=== PATIENT | female | born 2000 | race Caucasian/White ===

== ENCOUNTER 2024-01-16 01:03 | Emergency (ER) | payer BC ==
[2024-01-16 01:11] VITALS: BP 124/77; PULSE 70; RESP 16; TEMP 98.1; BMI 41.8
[2024-01-16] MEDS ORDERED: ONDANSETRON 4 MG/2 ML VIAL ONE (02:42)
[2024-01-16] MEDS ORDERED: ACETAMINOPHEN INJECTION 100 ML IVPB ONE (02:42)
[2024-01-16] MEDS: ONDANSETRON 4 MG/2 ML VIAL IVPUSH ONE (02:49)
[2024-01-16] MEDS: ACETAMINOPHEN 1000 MG/100 ML BAG IVPB ONE (02:49)
[2024-01-16 02:50] LABS: BASO % 0.2 % (0-2.0); HEMATOCRIT 39.8 % (32.4-45.2); HEMOGLOBIN 13.5 GM/dL (10.7-15.3); MCH 28.5 pg (25.7-33.7); MCHC 33.9 g/dl (32.0-36.0); MEAN CELL VOLUME 84.3 fl (80-96); MEAN PLT VOLUME 9.1 fl (7.5-11.1); MONO % 2.7 % (3.8-10.2); NEUT % 89.1 % (42.8-82.8); PLATELET COUNT 326 10^3/uL (134-434); RBC 4.72 M/mm3 (3.60-5.2); RDW 13.9 % (11.6-15.6); WHITE BLOOD COUNT 13.9 K/mm3 (4.0-10.0)
[2024-01-16] MEDS: LACTATED RINGERS SOLUTION 1000 ML INFUS.BAG IV ONE (02:50)
[2024-01-16 02:56] LABS: URINE APPEARANCE CLEAR; URINE BILIRUBIN NEGATIVE (NEGATIVE); URINE COLOR YELLOW; URINE GLUCOSE (UA) NEGATIVE (NEGATIVE); URINE KETONE 1+ (NEGATIVE); URINE LEUK ESTERASE TRACE (NEGATIVE); URINE NITRITE NEGATIVE (NEGATIVE); URINE PROTEIN 1+ (NEGATIVE)
[2024-01-16 03:11] LABS: POTASSIUM 4.2 mmol/L (3.5-5.1)
[2024-01-16 03:12] LABS: ALBUMIN 4.3 g/dl (3.4-5.0); BLOOD UREA NITROGEN 8.1 mg/dL (7-18); CALCIUM 9.7 mg/dL (8.5-10.1)
[2024-01-16 03:15] LABS: CREATININE 0.7 mg/dL (0.55-1.3)
[2024-01-16 03:17] LABS: BILIRUBIN,TOTAL 0.4 mg/dL (0.2-1)
[2024-01-16 08:17] LABS: EPI CELLS 63.8 /uL (0-25.1); HYALINE CASTS 2.04 /uL (0-3.1); URINE BACTERIA 1254.8 /uL (0-1359); URINE RBC 382.8 /uL (0-23.9); URINE WBC 39.6 /uL (0-25.8)
[2024-01-16] MEDS ORDERED: KETOROLAC TROMETHAMINE 15 MG/ML VIAL IVPUSH PRN (18:13)
[2024-01-16] MEDS ORDERED: ACETAMINOPHEN 1000 MG/100 ML BAG IVPB PRN (18:13)
[2024-01-16] MEDS ORDERED: LACTATED RINGERS SOLUTION 1,000 ML/1,000 ML INFUS.BAG IV SCH (18:15)
[2024-01-16] MEDS ORDERED: AMPICILLIN NA/SULBACTAM NA 3 GM in SODIUM CHLORIDE 100 ML IVPB SCH (18:15)
== END 2024-01-16 03:50 | disposition home or self-care (01) ==
LOC: JER 01:03
PROC: 3E033NZ Introduction of Analgesics, Hypnotics, Sedatives into Peripheral Vein, Percutaneous Approach (ICD-10-PCS; principal; 2024-01-16)
PROC: 3E033GC Introduction of Other Therapeutic Substance into Peripheral Vein, Percutaneous Approach (ICD-10-PCS; 2024-01-16)
DX: K80.20 Calculus of gallbladder without cholecystitis without obstruction (principal); R10.11 Right upper quadrant pain; R11.2 Nausea with vomiting, unspecified
CPT/HCPCS: 36415; 76705-TC; 80053; 81003; 83690; 84703; 85025; 99284-25; J0131

== ENCOUNTER 2024-01-16 14:38 | Inpatient (IN) | payer BC ==
[2024-01-16 14:45] VITALS: BMI 35.4
[2024-01-16] MEDS ORDERED: ACETAMINOPHEN INJECTION 100 ML IVPB ONE (16:04)
[2024-01-16] MEDS ORDERED: FAMOTIDINE 20 MG/50 ML IVPB 20 MG/50 ML MG IVPB ONE (16:04)
[2024-01-16 16:05] LABS: EPI CELLS >36 /uL (0-25.1); HYALINE CASTS 2 /uL (0-3.1); PH,URINE 6.5 (5.0-8.0); URINE APPEARANCE CLEAR; URINE BACTERIA 1154 /uL (0-1359); URINE BILIRUBIN NEGATIVE (NEGATIVE); URINE COLOR YELLOW; URINE GLUCOSE (UA) NEGATIVE (NEGATIVE); URINE KETONE TRACE (NEGATIVE); URINE LEUK ESTERASE 1+ (NEGATIVE); URINE NITRITE NEGATIVE (NEGATIVE); URINE PROTEIN TRACE (NEGATIVE); URINE RBC 118 /uL (0-23.9); URINE WBC 45 /uL (0-25.8)
[2024-01-16] MEDS: SODIUM CHLORIDE 1,000 ML IV STA (16:09)
[2024-01-16] MEDS: ACETAMINOPHEN 1000 MG/100 ML BAG IVPB ONE (16:09)
[2024-01-16] MEDS: FAMOTIDINE 20 MG/50 ML IVPB 20 MG/50 ML MG IVPB ONE (16:10)
[2024-01-16 16:13] LABS: BASO % 0.9 % (0-2.0); EOS % 0.5 % (0-4.5); HEMATOCRIT 39.8 % (32.4-45.2); HEMOGLOBIN 13.3 GM/dL (10.7-15.3); MCH 28.7 pg (25.7-33.7); MCHC 33.5 g/dl (32.0-36.0); MEAN CELL VOLUME 85.6 fl (80-96); MEAN PLT VOLUME 9.3 fl (7.5-11.1); NEUT % 72.6 % (42.8-82.8); PLATELET COUNT 313 10^3/uL (134-434); RBC 4.65 M/mm3 (3.60-5.2); RDW 13.7 % (11.6-15.6); WHITE BLOOD COUNT 11.3 K/mm3 (4.0-10.0)
[2024-01-16 16:23] LABS: INR 1.05 (0.83-1.09); PROTHROMBIN TIME (PATIENT) 12.1 SEC (9.7-13.0)
[2024-01-16 16:26] LABS: ACTIVATED PTT 28.9 SECONDS (25.2-36.5)
[2024-01-16 16:31] LABS: CALCIUM 9.6 mg/dL (8.5-10.1)
[2024-01-16 16:33] LABS: ALBUMIN 4.2 g/dl (3.4-5.0); BLOOD UREA NITROGEN 10.1 mg/dL (7-18)
[2024-01-16 16:35] LABS: CREATININE 0.7 mg/dL (0.55-1.3)
[2024-01-16 16:37] LABS: BILIRUBIN,TOTAL 0.6 mg/dL (0.2-1); TOT PROT 7.7 g/dl (6.4-8.2)
[2024-01-16] MEDS ORDERED: KETOROLAC TROMETHAMINE 15 MG/ML VIAL IM PRN (22:45)
[2024-01-17] MEDS: ACETAMINOPHEN 1000 MG/100 ML BAG IVPB PRN ×2 (00:37→22:13)
[2024-01-17] MEDS: LACTATED RINGERS SOLUTION 1,000 ML/1,000 ML INFUS.BAG IV SCH (00:38)
[2024-01-17] MEDS: PIPERACILLIN/TAZOB 3.375 GM 3.375 GM in DEXTROSE 5%-WATER - 50 ML IVPB ONE (01:36)
[2024-01-17] MEDS ORDERED: LIDOCAINE HCL/PF 2% SDV 5ML VIAL ONE (10:46)
[2024-01-17] MEDS ORDERED: SUCCINYLCHOLINE CHLORIDE 200 MG/10 ML SYRINGE ONE (10:46)
[2024-01-17] MEDS ORDERED: ONDANSETRON 4 MG/2 ML VIAL ONE ×3 (10:46→17:12)
[2024-01-17] MEDS ORDERED: ROCURONIUM BROMIDE 50 MG/5 ML SYRINGE ONE ×2 (10:46→14:46)
[2024-01-17] MEDS ORDERED: KETOROLAC TROMETHAMINE 30 MG/1 ML VIAL ONE ×2 (10:46→14:49)
[2024-01-17] MEDS ORDERED: DEXAMETHASONE SOD PHOSPHATE 4 MG/1 ML VIAL ONE ×3 (10:46→17:12)
[2024-01-17] MEDS ORDERED: PROPOFOL 20 ML ONE ×5 (10:49→17:05)
[2024-01-17] MEDS: PIPERACILLIN/TAZOB 3.375 GM 3.375 GM in DEXTROSE 5%-WATER - 50 ML IVPB SCH (10:53)
[2024-01-17] MEDS ORDERED: ONDANSETRON 4 MG/2 ML VIAL IVPUSH PRN ×2 (10:56→17:49)
[2024-01-17] MEDS ORDERED: BUPIVACAINE HCL/PF 0.5% (5MG/ML) 10 ML VIAL ONE (14:11)
[2024-01-17] MEDS ORDERED: ceFAZolin SODIUM 1 GM VIAL ONE (14:49)
[2024-01-17] MEDS ORDERED: MIDAZOLAM HCL 2 MG/2 ML SINGLE DOSE VIAL ONE (14:49)
[2024-01-17] MEDS: BUPIVACAINE HCL/PF 0.5% (5 MG/ML) 30 ML VIAL IJ ONE ×2 (15:33)
[2024-01-17] MEDS ORDERED: METOCLOPRAMIDE HCL INJECTION 10 MG/2 ML VIAL ONE (17:12)
[2024-01-17] MEDS ORDERED: SUGAMMADEX SODIUM 200 MG/2 ML VIAL ONE (17:13)
[2024-01-17] MEDS ORDERED: PROMETHAZINE HCL 25 MG/1 ML VIAL IVPB PRN (17:49)
[2024-01-17] MEDS: LACTATED RINGERS SOLUTION 1,000 ML IV SCH ×2 (18:14→20:12)
[2024-01-17] MEDS ORDERED: KETOROLAC TROMETHAMINE 15 MG/ML VIAL IM PRN (19:59)
[2024-01-17] MEDS ORDERED: ACETAMINOPHEN 325 MG TABLET (FP) PO PRN (20:04)
[2024-01-17] MEDS: oxyCODONE HCL 5 MG TABLET PO PRN (20:14)
[2024-01-17 23:53] VITALS: TEMP 98.2
[2024-01-18] MEDS: PIPERACILLIN/TAZOB 3.375 GM 3.375 GM in DEXTROSE 5%-WATER - 50 ML IVPB SCH (01:58)
[2024-01-18] MEDS: LACTATED RINGERS SOLUTION 1,000 ML IV SCH (06:11)
[2024-01-18 06:33] VITALS: BP 125/75; PULSE 89; RESP 20
[2024-01-18 11:20] LABS: BASO % 0.1 % (0-2.0); HEMATOCRIT 37.4 % (32.4-45.2); HEMOGLOBIN 12.4 GM/dL (10.7-15.3); LYMPH % 12.4 % (8-40); MCH 28.7 pg (25.7-33.7); MCHC 33.3 g/dl (32.0-36.0); MEAN CELL VOLUME 86.2 fl (80-96); MEAN PLT VOLUME 9.5 fl (7.5-11.1); MONO % 4.5 % (3.8-10.2); PLATELET COUNT 327 10^3/uL (134-434); RBC 4.34 M/mm3 (3.60-5.2); RDW 13.7 % (11.6-15.6); WHITE BLOOD COUNT 13.4 K/mm3 (4.0-10.0)
[2024-01-18 11:41] LABS: POTASSIUM 4.2 mmol/L (3.5-5.1)
[2024-01-18 11:42] LABS: CALCIUM 8.9 mg/dL (8.5-10.1)
[2024-01-18 11:43] LABS: ALBUMIN 3.6 g/dl (3.4-5.0); BLOOD UREA NITROGEN 6.7 mg/dL (7-18); MAGNESIUM 2.2 mg/dL (1.8-2.4)
[2024-01-18 11:46] LABS: CREATININE 0.6 mg/dL (0.55-1.3)
[2024-01-18 11:47] LABS: BILIRUBIN,TOTAL 0.4 mg/dL (0.2-1); TOT PROT 7.2 g/dl (6.4-8.2)
== END 2024-01-18 12:38 | disposition home or self-care (01) | DRG 418 ==
LOC: JER 14:38 → JERBED 16:06 → J8W 19:01
PROVIDERS: ADMIT Internal Medicine; ATTEND Nurse Practitioner Acute Care
PROC: 0FT44ZZ Resection of Gallbladder, Percutaneous Endoscopic Approach (ICD-10-PCS; principal; 2024-01-17 12:00)
DX: K80.00 Calculus of gallbladder with acute cholecystitis without obstruction (principal); K82.1 Hydrops of gallbladder
CPT/HCPCS: 0241U-QW; 36415; 80053; 81003; 83735; 85025; 85610; 85730; 86850; 86900; 86901; 87086; 88304-TC; 94760; 99285-25; J0131

== ENCOUNTER 2024-01-29 18:36 | Inpatient (IN) | payer BC ==
[2024-01-29] MEDS ORDERED: FAMOTIDINE 20 MG/50 ML IVPB 20 MG/50 ML MG IVPB ONE (23:24)
[2024-01-29] MEDS: FAMOTIDINE 10 MG TABLET PO ONE (23:59)
[2024-01-29] MEDS: LACTATED RINGERS SOLUTION 1,000 ML/1,000 ML INFUS.BAG IV SCH (23:59)
[2024-01-30 00:07] LABS: BASO % 1.1 % (0-2.0); EOS % 1.4 % (0-4.5); HEMATOCRIT 41.9 % (32.4-45.2); HEMOGLOBIN 13.9 GM/dL (10.7-15.3); LYMPH % 29.8 % (8-40); MCHC 33.2 g/dl (32.0-36.0); MEAN CELL VOLUME 87.4 fl (80-96); MEAN PLT VOLUME 9.9 fl (7.5-11.1); MONO % 6.7 % (3.8-10.2); PLATELET COUNT 344 10^3/uL (134-434); RDW 14.3 % (11.6-15.6); WHITE BLOOD COUNT 7.8 K/mm3 (4.0-10.0)
[2024-01-30 00:10] LABS: INR 0.92 (0.83-1.09); PROTHROMBIN TIME (PATIENT) 10.6 SEC (9.7-13.0)
[2024-01-30 00:13] LABS: ACTIVATED PTT 31.3 SECONDS (25.2-36.5)
[2024-01-30 00:30] LABS: POTASSIUM 3.7 mmol/L (3.5-5.1)
[2024-01-30 00:33] LABS: ALBUMIN 4.2 g/dl (3.4-5.0); BLOOD UREA NITROGEN 3.6 mg/dL (7-18); CALCIUM 9.7 mg/dL (8.5-10.1)
[2024-01-30 00:36] LABS: CREATININE 0.7 mg/dL (0.55-1.3)
[2024-01-30 00:37] LABS: BILIRUBIN,TOTAL 6.8 mg/dL (0.2-1); TOT PROT 8.2 g/dl (6.4-8.2)
[2024-01-30 01:47] LABS: BILIRUBIN,DIRECT 5.5 mg/dL (0.0-0.2)
[2024-01-30 07:23] LABS: BASO % 0.5 % (0-2.0); EOS % 1.8 % (0-4.5); HEMATOCRIT 36.6 % (32.4-45.2); HEMOGLOBIN 12.2 GM/dL (10.7-15.3); LYMPH % 29.6 % (8-40); MCH 29.1 pg (25.7-33.7); MCHC 33.4 g/dl (32.0-36.0); MEAN CELL VOLUME 87.2 fl (80-96); MEAN PLT VOLUME 10.2 fl (7.5-11.1); MONO % 7.6 % (3.8-10.2); NEUT % 60.5 % (42.8-82.8); PLATELET COUNT 283 10^3/uL (134-434); RBC 4.19 M/mm3 (3.60-5.2); RDW 14.2 % (11.6-15.6); WHITE BLOOD COUNT 6.6 K/mm3 (4.0-10.0)
[2024-01-30 07:25] LABS: INR 0.87 (0.83-1.09); PROTHROMBIN TIME (PATIENT) 10.1 SEC (9.7-13.0)
[2024-01-30 07:39] LABS: ALBUMIN 3.5 g/dl (3.4-5.0)
[2024-01-30 07:42] LABS: BILIRUBIN,DIRECT 4.7 mg/dL (0.0-0.2)
[2024-01-30 07:44] LABS: BILIRUBIN,TOTAL 5.2 mg/dL (0.2-1); TOT PROT 6.5 g/dl (6.4-8.2)
[2024-01-30] MEDS ORDERED: PIPERACILLIN/TAZOB 3.375 GM 3.375 GM in DEXTROSE 5%-WATER - 50 ML IVPB SCH (10:00)
[2024-01-30] MEDS: INDOMETHACIN 50 MG RECTAL SUPPOSITORY PR ONE (10:01)
[2024-01-30] MEDS ORDERED: CEFAZOLIN SODIUM 2 GM VIAL ONE (10:03)
[2024-01-30] MEDS: CEFAZOLIN SODIUM 2 GM VIAL IVPB ONE (10:05)
[2024-01-30] MEDS: IOHEXOL 300 MG/ML INFUS..BTL IV ONE (10:30)
[2024-01-30 12:28] VITALS: BMI 40.9
[2024-01-30] MEDS: LACTATED RINGERS SOLUTION 1,000 ML/1,000 ML INFUS.BAG IV SCH ×2 (13:32→23:36)
[2024-01-30] MEDS: PIPERACILLIN/TAZOB 3.375 GM 3.375 GM in DEXTROSE 5%-WATER - 50 ML IVPB SCH ×2 (13:34→17:45)
[2024-01-31 08:08] LABS: BASO % 0.2 % (0-2.0); HEMATOCRIT 33.5 % (32.4-45.2); HEMOGLOBIN 11.4 GM/dL (10.7-15.3); MCHC 34.1 g/dl (32.0-36.0); MEAN CELL VOLUME 87.9 fl (80-96); MONO % 6.4 % (3.8-10.2); NEUT % 73.4 % (42.8-82.8); PLATELET COUNT 229 10^3/uL (134-434); RBC 3.81 M/mm3 (3.60-5.2); RDW 14.1 % (11.6-15.6); WHITE BLOOD COUNT 7.6 K/mm3 (4.0-10.0)
[2024-01-31 08:26] LABS: POTASSIUM 3.9 mmol/L (3.5-5.1)
[2024-01-31 08:40] LABS: ALBUMIN 3.2 g/dl (3.4-5.0); BLOOD UREA NITROGEN 4.6 mg/dL (7-18); CALCIUM 8.6 mg/dL (8.5-10.1)
[2024-01-31 08:43] LABS: CREATININE 0.4 mg/dL (0.55-1.3)
[2024-01-31 08:50] LABS: BILIRUBIN,TOTAL 2.1 mg/dL (0.2-1)
[2024-01-31] MEDS: LACTATED RINGERS SOLUTION 1,000 ML/1,000 ML INFUS.BAG IV SCH (10:14)
[2024-01-31 15:03] VITALS: BP 127/70; PULSE 70; RESP 18; TEMP 98.9
== END 2024-01-31 17:38 | disposition home or self-care (01) | DRG 394 ==
LOC: JER 18:36 → JERBED 21:47 → J7W 01-30 11:59
PROVIDERS: ADMIT Internal Medicine; ATTEND Internal Medicine
PROC: 0FC98ZZ Extirpation of Matter from Common Bile Duct, Via Natural or Artificial Opening Endoscopic (ICD-10-PCS; principal; 2024-01-30 11:45)
DX: K91.89 Other postprocedural complications and disorders of digestive system (principal); R17 Unspecified jaundice; K80.50 Calculus of bile duct without cholangitis or cholecystitis without obstruction; Z90.49 Acquired absence of other specified parts of digestive tract; Y83.8 Other surgical procedures as the cause of abnormal reaction of the patient, or of later complication, without mention of misadventure at the time of the procedure; Y82.9 Unspecified medical devices associated with adverse incidents
CPT/HCPCS: 36415; 74330-TC; 76705-TC; 80053; 80076; 82248; 83690; 84703; 85025; 85610; 85730; 86140; 86850; 86900; 86901; 93005; 93010; 99285-25